=== PATIENT | female | born 1965 | race Two or more races ===

== ENCOUNTER 2019-10-31 12:15 | Inpatient (IN) | payer OTHER ==
[~2019-10-31] VITALS: Ht 152.4 cm; Wt 58.5 kg
[2019-11-05] MEDS ORDERED: METFORMIN HCL500 M3 PO (09:45)
[2019-11-05] MEDS ORDERED: SYNTHROID100 MCG PO (09:45)
[2019-11-05] MEDS ORDERED: GLIPIZIDE XL10 MG PO (09:45)
[2019-11-05] MEDS ORDERED: PRAVASTATIN SOD40 MG PO (09:46)
[2019-11-05] MEDS ORDERED: COZAAR25 MG (12:45)
[2019-11-12] MEDS ORDERED: DIAZEPAM10 MG PO (16:13)
[2019-11-12] MEDS ORDERED: PERCOCET 5-3251 EACH PO (16:13)
[2019-11-12] MEDS ORDERED: COLACE100 MG PO (16:14)
== END 2019-11-13 13:49 | disposition home or self-care (01) | DRG 454 ==
LOC: SURG 11-07 12:15 → SURH 11-12 05:05 → O/R 11-12 05:05 → SURG 11-12 12:15 → SURH 11-12 17:36
PROVIDERS: ADMIT Orthopaedic Surgery Orthopaedic Surgery of the Spine
PROC: 0RG10K1 Fusion of Cervical Vertebral Joint with Nonautologous Tissue Substitute, Posterior Approach, Posterior Column, Open Approach (ICD-10-PCS; 2019-11-12)
PROC: 0RB30ZZ Excision of Cervical Vertebral Disc, Open Approach (ICD-10-PCS; 2019-11-12)
PROC: 0RG20A0 Fusion of 2 or more Cervical Vertebral Joints with Interbody Fusion Device, Anterior Approach, Anterior Column, Open Approach (ICD-10-PCS; principal; 2019-11-12 13:00)
DX: M50.021 Cervical disc disorder at C4-C5 level with myelopathy (principal); M47.12 Other spondylosis with myelopathy, cervical region; I10 Essential (primary) hypertension; E03.8 Other specified hypothyroidism